=== PATIENT | female | born 1980 | race Native Hawaiian/Other Pacific Islander ===

== ENCOUNTER 2017-09-07 11:53 | Emergency (ER) | payer OTHER ==
[~2017-09-07] VITALS: Ht 160 cm; Wt 56.7 kg
[~2017-09-07 11:53] MED LIST: AMITRIPTYLIN50 MG PO; GABA300C2 PO
[2017-09-07 13:08] LABS: PLATELET COUNT 250 K/uL (152-353)
[2017-09-07 14:45] VITALS: BP 138/74; TEMP 98
== END 2017-09-07 14:45 ==
LOC: ED 11:53
PROVIDERS: Family Medicine
DX: F19.10 Other psychoactive substance abuse, uncomplicated (principal); E87.6 Hypokalemia; F41.9 Anxiety disorder, unspecified; N17.9 Acute kidney failure, unspecified; T18.9XXA Foreign body of alimentary tract, part unspecified, initial encounter; T52.8X4A Toxic effect of other organic solvents, undetermined, initial encounter; Y92.149 Unspecified place in prison as the place of occurrence of the external cause
CPT/HCPCS: 36415; 80053; 80307; 80320; 80329; 81000; 85027; 93005; 99285

== ENCOUNTER 2019-11-19 16:57 | Emergency (ER) | payer OTHER ==
[~2019-11-19] VITALS: Ht 162.6 cm; Wt 45.4 kg
[2019-11-19 17:21] VITALS: BP 139/73; TEMP 97.3
[2019-11-19 17:42] LABS: PLATELET COUNT 375 K/uL (152-353)
[2019-11-19 17:56] LABS: POTASSIUM 2.7 mmol/L (3.6-5.2)
== END 2019-11-19 20:03 | disposition home or self-care (01) ==
LOC: ED 16:57
PROVIDERS: Family Medicine
DX: F15.10 Other stimulant abuse, uncomplicated (principal); E87.6 Hypokalemia
CPT/HCPCS: 36415; 80053; 80307; 80320; 80329; 81000; 85027; 93005; 99285

== ENCOUNTER 2022-07-26 10:27 | Outpatient (CLI) | payer OTHER | END 2022-07-26 19:34 | disposition home or self-care (01) | LOC: MAMMO 10:27 | PROVIDERS: ATTEND Nurse Practitioner Acute Care | DX: Z12.31 Encounter for screening mammogram for malignant neoplasm of breast (principal) ==

== ENCOUNTER 2022-08-03 09:00 | Outpatient (CLI) | payer OTHER | END 2022-08-03 19:06 | disposition home or self-care (01) | LOC: CT 09:00 | PROVIDERS: ATTEND Nurse Practitioner Acute Care | DX: M25.552 Pain in left hip (principal); Z86.19 Personal history of other infectious and parasitic diseases; Z09 Encounter for follow-up examination after completed treatment for conditions other than malignant neoplasm | CPT/HCPCS: 36415; 82565; 84520 ==